=== PATIENT | male | born 1955 | race Caucasian/White ===

== ENCOUNTER 2024-08-27 07:23 | Outpatient (CLI) | payer MEDICARE, SELFPAY ==
--- NOTE | ~2024-08-27 | CT_ITS ---
CT Scan of the Chest without Contrast: Clinical Indication: Lung cancer screening, nicotine dependence Technique: Contiguous sections were acquired throughout the chest without intravenous contrast. Dose reduction technique was used on this scan by utilizing automated exposure control and iterative recon struction technique. The dose-length product (DLP) was 78.99 mGy-cm. Findings: There is no evidence of any significant mediastinal, hilar or axillary lymphadenopathy. There are ath erosclerotic calcifications of the aorta and coronary arteries. There is no evidence of pleural or pericardial effusion. There is biapical scarring. There is moderate emphysematous change, especially the upper lobes, with areas of mild peripheral chronic interstitial change. No other discrete pulmonary nodule evident. Rickey cified right upper lobe granuloma noted. Focal calcified pleural plaque noted in the left hemithorax. Images through the upper abdomen reveal no abnormalities. There is compression fracture of T9 with possible underlying lytic lesion. There are mild chronic anneliese earing compression deformities of T12 and L2. Impression: Lung RADS 2-S: Benign appearance. 12 month follow-up screening CT advised. T9 compression fracture with questionable underlying lytic lesion versus osteolysis related to healin g. Pre and postcontrast MR recommended to better assess for underlying pathologic lesion. Moderate emphysema in the upper lobes with mild interstitial changes. Reviewed, dictated and finalized at location . Impression: Lung RADS 2-S: Benign appearance. 12 month follow-up screening CT advised. T9 compression fracture with questionable underlying lytic lesion versus osteol ysis related to healing. Pre and postcontrast MR recommended to better assess f or underlying pathologic lesion. Moderate emphysema in the upper lobes with mild interstitial changes.
== END 2024-08-27 07:24 | disposition home or self-care (01) ==
LOC: CHSIMG 07:28
PROVIDERS: PCP Internal Medicine; Visit Provider Internal Medicine
DX: Z12.2 Encounter for screening for malignant neoplasm of respiratory organs (principal); Z87.891 Personal history of nicotine dependence; M48.54XA Collapsed vertebra, not elsewhere classified, thoracic region, initial encounter for fracture; J43.9 Emphysema, unspecified
CPT/HCPCS: 71271

== ENCOUNTER 2024-11-12 07:55 | Outpatient (CLI) | payer MEDICARE, SELFPAY ==
--- NOTE | ~2024-11-12 | US_ITS ---
Limited Abdominal Sonogram: Real-time sonographic imaging of the right upper quadrant was performed. Clinical History: Abnormal liver enzymes Findings: The liver appears normal with no evidence of mass lesion or bile duct dilatation. Main portal vein demonstrates normal direction of flow. The gallbladder is well distended, and appears normal with no evidence of gallstone or wall thickening. The common bile duct measures 5 mm. The visualized pancreas, aorta, and IVC are unremarkable. Impression: No significant abnormality seen. Reviewed, dictated and finalized at location . Impression: No significant abnormality seen.
[2024-11-12 13:56] LABS: Alanine Aminotransferase 302 U/L (6-50); Albumin Level 3.9 g/dL (3.5-5.1); Alkaline Phosphatase 330 U/L (38-126); Anion Gap 9 mmol/L (4-12); Aspartate Amino Transferase 295 U/L (17-59); Bilirubin,Total 1.2 mg/dL (0.2-1.3); Blood Urea Nitrogen 18 mg/dL (9-20); Calcium 9.8 mg/dL (8.4-10.2); Carbon Dioxide 29 mmol/L (22-30); Chloride 105 mmol/L (98-107); Estimated Glomerular Filt Rate > 60; Glucose 109 mg/dL (65-110); Osmolality Calculated 298 mOsm/kg (285-295); Potassium 5.0 mmol/L (3.4-5.0); Sodium 143 mmol/L (137-145); Total Protein 7.0 g/dL (6.3-8.2)
[2024-11-13 07:09] LABS: Cytomegalovirus (CMV) Ab, IgG >10.00 U/mL (0.00-0.59)
[2024-11-17 18:08] LABS: B microti IgG <1:10 (Neg:<1:10); E. chaffeensis IgG Negative (Neg:<1:64); Phosphatidylethanol (PEth) Negative (.)
== END 2024-11-12 07:56 | disposition home or self-care (01) ==
LOC: CHSIMG 07:56
PROVIDERS: PCP Internal Medicine; Visit Provider Internal Medicine
DX: R74.01 Elevation of levels of liver transaminase levels (principal); F10.11 Alcohol abuse, in remission
CPT/HCPCS: 76705; 80053; 80074; 80321; 86618; 86644; 86645; 86666; G0480

== ENCOUNTER 2024-11-13 13:25 | Outpatient (CLI) | payer MEDICARE, SELFPAY ==
--- NOTE | ~2024-11-13 | PE_ITS ---
EXAMINATION: PET_PETPSMAST_PT DATE: 11/13/2024 15:26 INDICATION: Prostate cancer TECHNIQUE: 4.883 mCi of Illucix Ga-68([id number]) was administered i.v. Low dose computed tomography (CT) images were acquired from the base of the brain to the base of the brain to the proximal thighs for attenuation correction and anatomic localization. Positron emission tomography (PET) images were acquired in the same distribution beginning 73 minutes after injection. Images including fused PET/CT images were reconstructed in axial, coronal, and sagittal planes. Automated exposure control technique was employed. The dose-length product was 560.10mGy-cm. COMPARISON: Chest CT dated 08/27/2024 FINDINGS: Head/neck: Typical pattern of symmetric physiologic increased activity in the lacrimal, parotid and submandibular glands as well as along the mucosa of the nasal and oral cavities, pharynx and hypopharynx. No pathologically enlarged cervical lymphadenopathy or suspicious foci of increased uptake in the visualized head or neck. Chest: Moderate emphysema with mild biapical pleural-parenchymal scarring. There are extensive regions of groundglass opacity and small patchy areas of consolidation throughout the left upper lobe and lingula which are new since the study from 2 months prior concerning for pneumonia with differential including atelectasis. More typical pattern of dependent atelectasis in the bilateral lower lobes. No suspicious pulmonary nodules, pulmonary edema or pleural effusion. Heart size is normal. Atherosclerotic coronary artery calcific location. Thoracic aorta is normal in caliber. Abdomen/pelvis/proximal thighs: Physiologic renal accumulation and excretion of activity in the kidneys, bladder and along portions of ureters. Prostatomegaly measuring 4.9 x 4.0 cm. There is a region of prominent increased uptake at the right posterior aspect of the prostate with maximal SUV of 23.6. This uptake extends into the base of the right seminal vesicle consistent with primary prostate cancer and local invasion into the seminal vesicle. Normal degree and slightly heterogenous pattern of increased uptake throughout the liver and spleen without radiologic correlate or dominant PSMA avid lesion. The gallbladder, pancreas and bilateral adrenal glands are normal. Moderate uptake scattered throughout the bowels with typical duodenal and proximal jejunal predominance and without radiologic correlate, also likely physiologic. There is a single small focus of mild uptake with maximal SUV of 3.1 positioned slightly anterior to the right sacral ala at the level of S3 without radiologic correlate which could be related to bowel activity or a small early metastatic lymph node. No other abnormal foci of increased soft tissue uptake or pathologically enlarged lymphadenopathy in the abdomen, pelvis or proximal thighs. Musculoskeletal: Again seen are multiple chronic compression fractures in the thoracic and upper lumbar spine. There is a small focus of moderate increased uptake with maximal SUV of 5.8 and the sacrum along the midline at the superior aspect of the S2 segment which without evident correlate on CT, nonetheless concerning for metastatic disease. No suspicious lytic, blastic or other abnormally PSA may avid bone lesions. IMPRESSION: 1. Prominent increased asymmetric activity at the right posterior aspect of the enlarged prostate consistent with primary prostate cancer which appears to invade into the base of the right seminal vesicle. 2. Single focus of moderate uptake at the S2 segment suspicious for metastatic disease. No other concerning bone lesions identified. 3. Small focus of mild uptake anterior to the right sacral ala which could be related to focal bowel activity or a very small early metastatic lymph node. 4. Moderate emphysema with extensive regions of groundglass opacity and mild patchy consolidation in the left upper lobe and lingula which are new since CT from 2 months prior which be most consistent with pneumonia or atelectasis. Reviewed, dictated and finalized at location A. IMPRESSION: 1. Prominent increased asymmetric activity at the right posterior aspect of the enlarged prostate consistent with primary prostate cancer which appears to inv montserrat into the base of the right seminal vesicle. 2. Single focus of moderate uptake at the S2 segment suspicious for metastatic disease. No other concerning bone lesions identified. 3. Small focus of mild uptake anterior to the right sacral ala which could be r elated to focal bowel activity or a very small early metastatic lymph node. 4. Moderate emphysema with extensive regions of groundglass opacity and mild pa tchy consolidation in the left upper lobe and lingula which are new since CT fr om 2 months prior which be most consistent with pneumonia or atelectasis.
--- OUTSIDE RECORDS SUMMARY | 2024-11-13 13:37 | XMS_ITS | Clinical Summary ---
Author Organization [facility] Address [facility] [place] [address] Care Team Providers Care [employer] Teacher Name Role Phone Av Osuna MD Primary Care Provider [phone] Bruno Lara MD Unavailable Allergies No known active allergies Medications atorvastatin (LIPITOR) 20 MG tablet Take 1 tablet (20 mg total) by mouth nightly at bedtime. Active Multiple Vitamin (MULTIVITAMIN ADULT OR) Take 1 tablet by mouth daily. Active Active Problems No known active problems Encounters Date Type Department Care Team Description 10/20/2024 12:59 PM CDT Anesthesia [place] [address] Zane Mills MD Jarvis, Brittany L, CNP 10/20/2024 12:55 PM CDT - 10/20/2024 1:46 PM CDT Surgery [facility] [place] [address] Bruno Lara MD TRANSRECTAL ULTRASOUND FUSION GUIDED PROSTATE BIOPSY 10/20/2024 11:17 AM CDT - 10/20/2024 3:30 PM CDT Hospital Encounter [facility] [address] Bruno Lara MD Discharge Disposition: Home or Self Care (Routine Discharge) 10/20/2024 Travel 10/13/2024 Travel from Last 3 Months Social History Tobacco Use Types Packs/Day Years Used Date Smoking Tobacco: Every Day Cigarettes 1 50.6 Started: 1974 Smokeless Tobacco: Never Alcohol Use Standard Drinks/Week Comments Not Currently 0 (1 standard drink = 0.6 oz pur e alcohol) Sex and Gender Information Value Date Recorded Sex Assigned at Male 10/20/2024 11:08 AM CDT Legal Sex Male 9:22 AM CDT Gender Identity Not on file Sexual Orientation Not on file Last Filed Vital Signs Vital Sign Reading Time Taken Comments Blood Pressure 122/74 10/20/2024 3:20 PM CDT Pulse 70 10/20/2024 3:20 PM CDT Temperature 37 C (98.6 F) 10/20/2024 3:20 PM CDT Respiratory Rate 18 10/20/2024 3:20 PM CDT Oxygen Saturation 98% 10/20/2024 3:20 PM CDT Inhaled Oxygen Concentration - - Weight 72.6 kg (160 lb) 10/13/2024 2:19 PM CDT Height 188 cm (6' 2) 10/20/2024 11:35 AM CDT Body Mass Index 20.54 10/13/2024 2:19 PM CDT Plan of Treatment Health Maintenance Due Date Last Done Comments Colorectal Cancer Screening Colonoscopy (10 Years) 1955 Hepatitis C 02/01/1972 DTaP, Tdap and Td Vaccines ( 1 - Tdap) 1973 Pneumococcal Vaccine: 50+ Ye ars (1 of 2 - PCV) 1973 Lung Cancer Screening 02/01/2004 Zoster Vaccines (1 of 2) 02/01/2004 AAA SCREENING 2019 Annual Medicare Wellness Visit 2019 COVID-19 Vaccine ( - 2023-2 5 season) 2023 RSV Immunization or 60+ Years (1 - 1-dose 75+ series) 2029 Meningococcal B Vaccine Aged Out No l onger eligible based on patient's age to complete this topic Meningococcal Vaccine Aged Out No chelle charlene eligible based on patient's age to complete this topic RSV Immunizations Under 20 Months Aged Out No longer eligible based on patient's age to complete this topic Medical Devices Implanted Type Area Emotional Disabilities Teacher Device Identifier Shelf Expiration Date Model / Serial / Lot Lens Lens Procedures Procedure Name Priority Date/Time Associated Diagnosis Comments BIOPSY OF PROSTATE,NEEDLE/P UNCH 10/20/2024 12:59 PM CDT HEMATURIA, MICROSCOPIC; PSA ELEVATION R31.29; R97.20 Case Notes SCHED BY FAX ON 10/08/24 [facility] PHONE ASSESS Special Needs [facility] # [phone] PATHOLOGY Routine 10/20/2024 12:00 AM CDT from Last 3 Months Results * Pathology (10/20/2024 12:00 AM CDT) PATHOLOGY [facility] Department of Laboratory Medicine [address] [place] [phone] , extension [phone] Pathology Report Surgical Pathology Report Name: VON CLEMONS Specimen #: [id number] Age: 11 1955 (Age: 69) Location: [facility] Sex: M Procedure Date: 10/20/2024 Hospital #: [id number] Date Received: 10/21/2024 Date Reported: 10/27/2024 Provider: BRUNO LARA MD Source: A: Prostate, right lateral base, needle biopsy B: Prostate, right medial base, needle biopsy C: Prostate, right lateral mid, needle biopsy D: Prostate, right medial mid, needle biopsy E: Prostate, right lateral apex, needle biopsy F: Prostate, right medial apex, needle biopsy G: Prostate, left lateral base, needle biopsy H: Prostate, left medial base, needle biopsy I: Prostate, left lateral mid, needle biopsy J: Prostate, left medial mid, needle biopsy K: Prostate, left lateral apex, needle biopsy L: Prostate, left medial apex, needle biopsy M: Prostate, ROXANA #1, needle biopsy Clinical History: Microscopic hematuria. Elevated PSA. FINAL DIAGNOSIS: A. 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 - Perineural invasion is present. B. Prostate, right medial base, needle biopsy: - Prostatic acinar adenocarcinoma, Trappe Score 4 + 4 = 8 (Grade Group 4), involving 1 of 1 core and greater than 95% of the tissue. C. Prostate, right lateral mid, needle biopsy: -Prostatic acinar adenocarcinoma, Trappe Score 4 + 3 = 7 (Grade Group 3), involving 1 of 1 core and 90% of the tissue. - Perineural invasion is present. D. Prostate, right medial mid, needle biopsy: -Prostatic acinar adenocarcinoma, Lydia Score 4 + 3 = 7 (Grade Group 3), involving 1 of 1 core and 75% of the tissue. - Perineural invasion is present. E. Prostate, right lateral apex, needle biopsy: -Prostatic acinar adenocarcinoma, Lydia Score 4 + 3 = 7 (Grade Group 3), involving 1 of 1 core and 85% of the tissue. - Extraprostatic extension is present. F. Prostate, right medial apex, needle biopsy: -Prostatic acinar adenocarcinoma, Lydia Score 4 + 3 = 7 (Grade Group 3), involving 2 of 2 cores and 50% of the tissue. G. Prostate, left lateral base, needle biopsy: -Benign prostate tissue. H. Prostate, left medial base, needle biopsy: -Benign prostate tissue. I. Prostate, left lateral mid, needle biopsy: -Benign prostate tissue. J. Prostate, left medial mid, needle biopsy: -Benign prostate tissue. K. Prostate, left lateral apex, needle biopsy: -Focus of high grade prostatic intraepithelial neoplasia (HGPIN) with adjacent small atypical glands. L. Prostate, left medial apex, needle biopsy: -Atypical small acinar proliferation. M. Prostate, region of interest #1, needle biopsy: -Prostatic acinar adenocarcinoma, Lydia Score 4 + 4 = 8 (Grade Group 4), involving 2 of 2 cores and greater than 95% of the tissue. - Perineural invasion is present. Diagnosis Comment: A triple immunostain for AMACR/p63/HMWK is performed on blocks K1, L1, and M1 to assess for invasive carcinoma. Invasive carcinoma is identified in block M1 characterized by strong AMACR reactivity and an absence of basal cell markers p63/HMWK. In block K1, rare glands show loss of basal cell markers and strong AMACR reactivity directly adjacent to a focus of high-grade prostatic intraepithelial neoplasia. While this may represent outpouchings from the high-grade PIN, the possibility of focal invasive carcinoma in this biopsy cannot be entirely excluded. In block L1, the atypical glands of interest are no longer present on deeper sections, precluding definitive assessment. An immunohistochemical stain for NKX3.1 is performed on block M1 to confirm the impression of invasive carcinoma of prostatic origin. The invasive carcinoma is diffusely positive for NKX3.1, compatible with prostate origin. Gross Description: A. Received in formalin, labeled with a patient label and as right lateral base is a 1.2 cm long, less than 0.1 cm diameter core of white-dowling tissue. The specimen is entirely submitted in cassette A1. B. Received in formalin, labeled with a patient label and as right medial base is a 1.6 cm long, less than 0.1 cm diameter core of white-dowling tissue. The specimen is entirely submitted in cassette B1. C. Received in formalin, labeled with a patient label and as right lateral mid is a 1.7 cm long, less than 0.1 cm diameter core of white-dowling tissue. The specimen is entirely submitted in cassette C1. D. Received in formalin, labeled with a patient label and as right medial mid is a 1.7 cm long, less than 0.1 cm diameter core of white-dowling tissue. The specimen is entirely submitted in cassette D1. E. Received in formalin, labeled with a patient label and as right lateral apex is a 1.7 cm long, less than 0.1 cm diameter core of white-dowling tissue. The specimen is entirely submitted in cassette E1. F. Received in formalin, labeled with a patient label and as right medial apex are 2 less than 0.1 cm diameter cores of white-dowling tissue, 0.2 and 1.3 cm in length. The specimen is entirely submitted in cassette F1. G. Received in formalin, labeled with a patient label and as left lateral base is a 1.7 cm long, less than 0.1 cm diameter core of white-dowling tissue. The specimen is entirely submitted in cassette G1. H. Received in formalin, labeled with a patient label and as left medial base is a 1.1 cm long, less than 0.1 cm diameter core of white-dowling tissue. The specimen is entirely submitted in cassette H1. I. Received in formalin, labeled with a patient label and as left lateral mid is a 1.5 cm long, less than 0.1 cm diameter core of white-dowling tissue. The specimen is entirely submitted in cassette I1. J. Received in formalin, labeled with a patient label and as left medial mid is a 1.4 cm long, less than 0.1 cm diameter core of white-dowling tissue. The specimen is entirely submitted in cassette J1. K. Received in formalin, labeled with a patient label and as left lateral apex are 2 less than 0.1 cm diameter cores of white-dowling tissue, 0.3 and 0.5 cm in length. The specimen is entirely submitted in cassette K1. L. Received in formalin, labeled with a patient label and as left medial apex are 2 less than 0.1 cm diameter cores of white-dowling tissue, 0.3 and 0.5 cm in length. The specimen is entirely submitted in cassette L1. M. Received in formalin, labeled with a patient label and as region of interest #1 are 2 less than 0.1 cm diameter cores of white-dowling tissue, 1.2 and 1.5 cm in length. The specimen is entirely submitted in cassette M1. All immunohistochemical and histochemical tests were developed by and performed at [facility], [address] [place] [address]. All tests reported here have not been cleared or approved by the U.S. Food and Drug Administration (FDA). This laboratory is regulated under CLIA as qualified to perform high-complexity testing. These tests are used for clinical purposes. They should not be regarded as investigational or for research. Positive and negative controls show appropriate reactivity. Gross examination (when applicable) was performed at [facility], [address] [place] [address]. This case was interpreted and signed out at [facility], [address] [place] [address]. Electronically Signed Out Rikki Quick M.D. [facility] TISSUE PROSTATE / Unknown 12:38 PM CDT Tissue specimen (specimen) PROSTATE / Unknown 10/20/2024 12:38 PM CDT Tissue specimen (specimen) PROSTATE / Unknown 10/20/2024 12:38 PM CDT Tissue specimen (specimen) PROSTATE / Unknown 10/20/2024 12:38 PM CDT Tissue specimen (specimen) PROSTATE / Unknown 10/20/2024 12:38 PM CDT Tissue specimen (specimen) PROSTATE / Unknown 10/20/2024 12:38 PM CDT Tissue specimen (specimen) PROSTATE / Unknown 10/20/2024 12:38 PM CDT Tissue specimen (specimen) PROSTATE / Unknown 10/20/2024 12:38 PM CDT Tissue specimen (specimen) PROSTATE / Unknown 10/20/2024 12:38 PM CDT Tissue specimen (specimen) PROSTATE / Unknown 10/20/2024 12:38 PM CDT Tissue specimen (specimen) PROSTATE / Unknown 10/20/2024 12:38 PM CDT Tissue specimen (specimen) PROSTATE / Unknown 10/20/2024 12:38 PM CDT Tissue specimen (specimen) PROSTATE / Unknown 10/20/2024 12:39 PM CDT Bruno Lara MD PATHOLOGY/CYTOLOGY ORDERABLES Fi nal Result [facility] [address] [place] [address], [place] [phone] [id number] from Last 3 Months Insurance [employer] Care Teams Secondary School Teacher Relationship Specialty Start Date End Date Av Osuna MD [address] [place] [address] PCP - General INTERNAL MEDICINE 10/13/24 Brnuo Lara MD [address] [place] [address] Consulting Physician UROLOGY 10/13/24
== END 2024-11-13 13:26 | disposition home or self-care (01) ==
PROVIDERS: PCP Internal Medicine; Visit Provider Urology
DX: C61 Malignant neoplasm of prostate (principal); J43.9 Emphysema, unspecified; J18.1 Lobar pneumonia, unspecified organism
CPT/HCPCS: 78815; A9596

== ENCOUNTER 2024-11-19 08:26 | Outpatient (CLI) | payer MEDICARE, SELFPAY ==
[2024-11-19 08:56] LABS: Hematocrit 42.6 % (37.0-46.0); Hemoglobin 13.7 g/dL (12.4-15.3); Mean Corpuscular HGB Conc 32.2 g/dL (32-36); Mean Corpuscular Hemoglobin 30.3 pg (27.0-31.0); Mean Corpuscular Volume 94.2 fL (78.0-102.0); Platelet Count Result 484 K/mm3 (150-420); Red Blood Count 4.52 M/mm3 (4.70-6.10); White Blood Count 12.2 K/mm3 (4.8-10.8)
[2024-11-19 09:41] LABS: Alanine Aminotransferase 38 U/L (6-50); Albumin Level 4.2 g/dL (3.5-5.1); Alkaline Phosphatase 159 U/L (38-126); Anion Gap 8 mmol/L (4-12); Aspartate Amino Transferase 30 U/L (17-59); Bilirubin,Total 0.8 mg/dL (0.2-1.3); Blood Urea Nitrogen 15 mg/dL (9-20); CRP 0.6 mg/dL (<1.0); Calcium 9.8 mg/dL (8.4-10.2); Carbon Dioxide 31 mmol/L (22-30); Chloride 102 mmol/L (98-107); Estimated Glomerular Filt Rate > 60; Glucose 107 mg/dL (65-110); Osmolality Calculated 292 mOsm/kg (285-295); Potassium 5.2 mmol/L (3.4-5.0); Sodium 141 mmol/L (137-145); Total Protein 7.3 g/dL (6.3-8.2)
[2024-11-19 10:18] LABS: Ferritin 181.00 ng/mL (11.1-264)
[2024-11-19 10:27] LABS: GGT 45.6 U/L (15-73)
[2024-11-21 13:08] LABS: ANA by IFA Rfx Titer/Pattern Positive (.)
== END 2024-11-19 08:27 | disposition home or self-care (01) ==
LOC: CHSLAB 08:30
PROVIDERS: PCP Internal Medicine; Visit Provider Internal Medicine
DX: R94.5 Abnormal results of liver function studies (principal); B17.9 Acute viral hepatitis, unspecified
CPT/HCPCS: 36415; 80053; 80074; 82728; 82977; 85027; 86015; 86038; 86140; 86376

== ENCOUNTER 2024-12-22 08:28 | Outpatient (CLI) | payer MEDICARE, SELFPAY ==
--- NOTE | ~2024-12-22 | XR_ITS ---
Examination: XR chest 2V Clinical History: L UL PNEUMONIA/ACUTE HEPATITIS FU Comparison: None Technique: PA and Lateral Findings: Cardiomediastinal silhouette normal size and configuration. Emphysema with hyperinflation. No focal airspace disease. No pleural effusion or pneumothorax No acute bony abnormality. Anterior wedge deformity of what is probably T9. IMPRESSION: 1. No acute cardiopulmonary findings. Reviewed, dictated and finalized at location R.
[2024-12-22 09:07] LABS: Hematocrit 43.4 % (37.0-46.0); Hemoglobin 14.0 g/dL (12.4-15.3); Mean Corpuscular HGB Conc 32.3 g/dL (32-36); Mean Corpuscular Hemoglobin 30.4 pg (27.0-31.0); Mean Corpuscular Volume 94.3 fL (78.0-102.0); Platelet Count Result 201 K/mm3 (150-420); Red Blood Count 4.60 M/mm3 (4.70-6.10); White Blood Count 9.3 K/mm3 (4.8-10.8)
[2024-12-22 09:27] LABS: Alanine Aminotransferase 11 U/L (6-50); Albumin Level 4.4 g/dL (3.5-5.1); Alkaline Phosphatase 93 U/L (38-126); Anion Gap 7 mmol/L (4-12); Aspartate Amino Transferase 27 U/L (17-59); Bilirubin,Total 0.6 mg/dL (0.2-1.3); Blood Urea Nitrogen 18 mg/dL (9-20); Calcium 9.9 mg/dL (8.4-10.2); Carbon Dioxide 29 mmol/L (22-30); Chloride 107 mmol/L (98-107); Estimated Glomerular Filt Rate > 60; Glucose 104 mg/dL (65-110); Osmolality Calculated 297 mOsm/kg (285-295); Potassium 5.1 mmol/L (3.4-5.0); Sodium 143 mmol/L (137-145); Total Protein 8.9 g/dL (6.3-8.2)
== END 2024-12-22 08:29 | disposition home or self-care (01) ==
LOC: CHSLAB 08:30
PROVIDERS: PCP Internal Medicine; Visit Provider Internal Medicine
DX: J18.9 Pneumonia, unspecified organism (principal); B17.9 Acute viral hepatitis, unspecified
CPT/HCPCS: 36415; 71046; 80053; 85027

== ENCOUNTER 2024-12-29 11:51 | Outpatient (CLI) | payer MEDICARE, SELFPAY ==
--- NOTE | ~2024-12-29 | DEXA_ITS ---
Bone Density Report Name: VON MULTANI Age: 69 Sex: Male Ethnicity: White Date of : 1955 Indication: screening for osteoporosis; cancer; Referring Provider: BRUNO LARA Study: Bone densitometry was performed. Exam Date: December 29, 2024 Accession number: [id number] Bone Density: Region BMD T-score Z-score Classification AP Spine(L1-L4) 0.741 -3.2 -2.3 Osteoporosis Femoral Neck (Left) 0.687 -1.8 -0.6 Osteopenia Total Hip (Left) 0.801 -1.5 -0.8 Osteopenia Femoral Neck (Right) 0.692 -1.8 -0.5 Osteopenia Total Hip (Right) 0.802 -1.5 -0.8 Osteopenia Femoral Neck Mean 0.689 -1.8 -0.6 Osteopenia Total Hip Mean 0.801 -1.5 -0.8 Osteopenia World Health Organization criteria for BMD impression classify patients as: Normal (T-score at or above -1.0), Osteopenia (T-score between -1.0 and -2.5), or Osteoporosis (T-score at or below -2.5). 10-year Fracture Risk: FRAX not reported because: Some T-score for Spine Total or Hip Total or Femoral Neck at or below -2.5 Clinical Information Provided by Patient: Has the following medical conditions: Cancer Patient maximum height was 73 No regular weight bearing exercise Drinks caffeinated beverages Impression: The patient has osteoporosis, based on the Total Spine T-score. Discussion: HIGH RISK OF FRACTURE. BONE DENSITY IS UNDESIRABLY LOW AT ONE OR MORE SKELETAL SITES, CONSISTENT WITH OSTEOPOROSIS. ALSO, BONE DENSITY IS LOWER THAN EXPECTED FOR AGE, SEX AND RACE AT ONE OR MORE SKELETAL SITES; RECOMMEND A DILIGENT SEARCH FOR SECONDARY CAUSES OF BONE LOSS. This patient's lowest T-score meets the World Health Organization's (WHO) criteria for osteoporosis at one or more sites (T-score -2.5 or below). In untreated patients, the risk of osteoporotic fracture increases approximately two-fold for each 1.0 SD decrease in T-score. Low bone density is not the only risk factor for fracture; also consider factors such as patient's age, frailty or poor health, risk of falling, risk of injury, previous osteoporotic fracture, family history of osteoporosis, cigarette smoking, low body weight, etc. Not everyone with low bone mineral density has osteoporosis; osteomalacia and other metabolic bone disorders should also be considered. Patients who have osteoporosis should be evaluated for specific diseases and conditions (secondary causes) that may cause or contribute to bone loss. The National Osteoporosis Foundation (NOF) recommends pharmacologic intervention for men with BMD at this level (a T-score of -2.5 or below). Also, this patient's bone mineral density is below the range considered normal for healthy age-, sex and race-matched controls at least one site (Z-score -2.0 or below). This warrants careful evaluation for diseases and conditions that may contribute to accelerated bone loss. The patient should follow a healthful lifestyle (good nutrition with adequate calcium and vitamin D, and appropriate weight-bearing exercise). Follow-Up: Consider repeating this study in 2 years to reassess this patient's status, or sooner if there is some new clinical indication. Reported by: NESTOR on 12/29/2024 12:19:00 PM. Reviewed, dictated and finalized at location A.
--- OUTSIDE RECORDS SUMMARY | 2024-12-29 13:10 | XMS_ITS | Clinical Summary ---
Author Organization [facility] Address [address] [place] [address] Care Team Providers Care Hosiery Operator Name Role Phone Av Osuna MD Primary Care Provider [phone] Bruno Lara MD Unavailable Allergies No known active allergies Medications atorvastatin (LIPITOR) 20 MG tablet Take 1 tablet (20 mg total) by mouth nightly at bedtime. Active Multiple Vitamin (MULTIVITAMIN ADULT OR) Take 1 tablet by mouth daily. Active Active Problems No known active problems Encounters Date Type Department Care Team Description 12/25/2024 2:00 PM CDT - 12/25/2024 11:59 PM CDT Hospital Encounter [facility] Radiation [address] [address] Tomas Chew MD Discharge Disposition: Home or Self Care (Routine Discharge) 12/25/2024 12:23 PM CDT - 12/25/2024 1:59 PM CDT Hospital Encounter [facility] [address] [facility] [address] Tomas Chew MD Discharge Disposition: Home or Self Care (Routine Discharge) 12/25/2024 Travel 12/24/2024 9:00 AM CDT - 12/24/2024 11:59 PM CDT Hospital Encounter [address] [address] Tomas Chew MD Discharge Disposition: Home or Self Care (Routine Discharge) 12/24/2024 Travel 12/18/2024 Transcribe Orders [facility] [place] [address] [place] [address] Tomas Chew MD 12/11/2024 11:15 AM CDT - 12/11/2024 11:59 PM CDT Hospital Encounter [facility] [place] [address] [place] [address] Tomas Chew MD Discharge Disposition: Home or Self Care (Routine Discharge) 12/11/2024 Travel 10/20/2024 12:59 PM CDT [place]esthesia [place] [address] Zane Mills MD Jarvis, Brittany L, SPORTS PHYSICAL THERAPIST 10/20/2024 12:55 PM CDT - 10/20/2024 1:46 PM CDT [place] [address] Bruno Lara MD TRANSRECTAL ULTRASOUND FUSION GUIDED PROSTATE BIOPSY 10/20/2024 11:17 AM CDT - 10/20/2024 3:30 PM CDT Hospital Encounter [facility] [place] [address] Bruno Lara MD Discharge Disposition: Home or Self Care (Routine Discharge) 10/20/2024 Travel 10/13/2024 Travel from Last 3 Months Social History Tobacco Use Types Packs/Day Years Used Date Smoking Tobacco: Every Day Cigarettes 1 50.8 Started: 1974 Smokeless Tobacco: Never Alcohol Use [...] Colorectal Cancer Screening Colonoscopy (10 Years) 1955 COVID-19 Vaccine (#1) 1959 Hepatitis C 02/01/1972 DTaP, Tdap and Td Vaccines ( 1 - Tdap) 1973 Pneumococcal Vaccine: 50+ Ye ars (1 of 2 - PCV) 1973 Zoster Vaccines (1 of 2) 1973 RSV Immunization or 60+ Years (1 - Risk 60-74 years 1-dose series) 2014 Annual Medicare Wellness Visit 2019 Influenza Adult (#1) 2024 AAA SCREENING Completed 10/30/2024 Meningococcal B Vaccine Aged Out No l onger eligible based on patient's age to complete this topic Meningococcal Vaccine Aged Out No chelle charlene eligible based on patient's age to complete this topic RSV Immunizations Under 20 Months Aged Out No longer eligible based on patient's age to complete this topic Medical Devices Implanted Type Area Field Insurance Sales Manager Device Identifier Shelf Expiration Date Model / Serial / Lot Lens Lens Procedures Procedure Name Priority Date/Time Associated Diagnosis Comments BIOPSY OF PROSTATE,NEEDLE/P [facility] 10/20/2024 12:59 PM CDT HEMATURIA, MICROSCOPIC; PSA ELEVATION R31.29; R97.20 Case Notes SCHED BY FAX ON 10/08/24 [facility] PHONE ASSESS Special Needs [facility] # [id number] PATHOLOGY Routine 10/20/2024 12:00 AM CDT from Last 3 Months Results * Pathology (10/20/2024 12:00 AM CDT) PATHOLOGY [facility] Department of Laboratory Medicine [address] [place] [address] , extension [phone] Pathology Report Surgical Pathology Report Name: VON CLEMONS Specimen #: [id number] Age: 11 1955 (Age: 69) Location: [facility] Sex: M Procedure Date: 10/20/2024 Hospital #: [id number] Date Received: 10/21/2024 Date Reported: 10/27/2024 Provider: [...] base, needle biopsy: - Prostatic acinar adenocarcinoma, 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 - Perineural invasion is present. B. Prostate, right medial base, needle biopsy: - Prostatic acinar adenocarcinoma, Lydia Score 4 + 4 = 8 (Grade Group 4), involving 1 of 1 core and greater than 95% of the tissue. C. Prostate, right lateral mid, needle biopsy: -Prostatic acinar adenocarcinoma, Lydia Score 4 + 3 = 7 (Grade Group 3), involving 1 of 1 core and 90% of the tissue. - Perineural invasion is present. D. Prostate, right medial mid, needle biopsy: -Prostatic acinar adenocarcinoma, Montclair Score 4 + 3 = 7 (Grade [...] interest #1, needle biopsy: -Prostatic acinar adenocarcinoma, Montclair Score 4 + 4 = 8 (Grade [...] tests were developed by and performed at [facility], [address] [place] [address]. All tests reported here have not been cleared or approved by the U.S. Food and Drug Administration (FDA). This laboratory is regulated under CLIA as qualified to perform high-complexity testing. These tests are used for clinical purposes. They should not be regarded as investigational or for research. Positive and negative controls show appropriate reactivity. Gross examination (when applicable) was performed at [facility], [address] [place] [address]. This case was interpreted and signed out at [facility], [address] [place] [address]. Electronically Signed Out Rikki Quick M.D. [facility] TISSUE PROSTATE / Unknown 12:38 PM [...] PROSTATE / Unknown 10/20/2024 12:39 PM CDT us Bruno T Ark MD PATHOLOGY/CYTOLOGY ORDERABLES Fi nal Result [facility] [address] [place] [address], [place] [phone] [id number] from Last 3 Months Insurance [employer] Care Teams Hosiery Operator Relationship Specialty Start Date End Date Av Osuna MD [address] [place] [address] PCP - General INTERNAL MEDICINE 10/13/24 Bruno Lara MD [address] [place] [phone] Consulting Physician UROLOGY 10/13/24
== END 2024-12-29 11:52 | disposition home or self-care (01) ==
LOC: CHSIMG 11:53
PROVIDERS: PCP Internal Medicine; Visit Provider Urology
DX: M81.0 Age-related osteoporosis without current pathological fracture (principal); M85.89 Other specified disorders of bone density and structure, multiple sites
CPT/HCPCS: 77080

== ENCOUNTER 2025-02-28 08:11 | Outpatient (CLI) | payer MEDICARE, SELFPAY ==
[2025-02-28 09:02] LABS: Anion Gap 7 mmol/L (4-12); Blood Urea Nitrogen 14 mg/dL (9-20); Calcium 9.9 mg/dL (8.4-10.2); Carbon Dioxide 29 mmol/L (22-30); Chloride 107 mmol/L (98-107); Estimated Glomerular Filt Rate > 60; Glucose 99 mg/dL (65-110); Osmolality Calculated 296 mOsm/kg (285-295); Potassium 4.8 mmol/L (3.4-5.0); Sodium 143 mmol/L (137-145)
[2025-02-28 09:33] LABS: Prostate Specific Antigen 0.3 ng/mL (< OR = 4.0)
== END 2025-02-28 08:12 | disposition home or self-care (01) ==
LOC: CHSLAB 08:14
PROVIDERS: PCP Internal Medicine; Visit Provider Urology
DX: C61 Malignant neoplasm of prostate (principal); Z19.1 Hormone sensitive malignancy status
CPT/HCPCS: 36415; 80048; 84153